=== PATIENT | male | born 1965 | race Two or more races ===

== ENCOUNTER 2025-02-06 18:24 | Observation (INO) | payer MEDICAID, SELFPAY ==
--- NOTE | 2025-02-05 09:25 | EKG_ITS ---
[facility] Test Date: 2025-02-05 Pat Name: ROBERT GARCIA Department: Room: - Gender: Male [employer] Assistant: LIZZETTE : 1965 Requested By: Nickolas Smith Order Number: [id number] Reading MD: Nickolas Smith Measurements Intervals [place] Rate: 56 P: 37 [place]: 150 QRS: 3 QRSD: 84 T: 69 QT: 379 QTc: 368 Interpretive Statements SINUS BRADYCARDIA NONSPECIFIC T-WAVE ABNORMALITY No previous ECG available for comparison /[id number]/S0/[id number]
[2025-02-05 10:28] VITALS: BMI 28.0
[2025-02-05 11:49] LABS: Basophils # (Auto) 0.1 Thou/mm3 (0.0-0.2); Basophils % (Auto) 1 % (0-2.5); Eosinophils # (Auto) 0.2 Thou/mm3 (0.0-0.5); Eosinophils % (Auto) 2 % (0-10); Hemoglobin 15.6 g/dL (13.5-16.0); Immature Granulocytes % (Auto) 1 % (0-0); Immature Granulocytes Auto 0.04 Thou/mm3 (0.00-0.00); Lymphocytes # (Auto) 2.9 Thou/mm3 (1.0-4.8); Lymphocytes % (Auto) 36 % (10-50); Mean Corpuscular HGB Conc 33.9 g/dl (31.0-37.0); Mean Corpuscular Hemoglobin 31.4 pg (25.0-35.0); Mean Corpuscular Volume 93 fL (80-100); Monocytes # (Auto) 0.8 Thou/mm3 (0.0-0.8); Monocytes % (Auto) 9 % (0-12); Neutrophils # (Auto) 4.1 Thou/mm3 (1.8-7.7); Neutrophils % (Auto) 51 % (37-80); Nucleated Red Blood Cell % 0 /100 WBC (0); Platelet Count 254 Thou/mm3 (140-440); RDW Standard Deviation 42.6 fL (35.1-43.9); Red Blood Count 4.97 Miln/mm3 (4.50-5.90)
[2025-02-05 12:01] LABS: Partial Thromboplastin Time 28.5 Seconds (22.0-36.0); Prothrombin Time 10.7 Seconds (9.0-12.2)
[2025-02-05 12:03] LABS: Alanine Aminotransferase 32 U/L (10-49); Albumin, Serum 4.7 gm/dL (3.5-5.0); Albumin/Globulin Ratio 1.7 (1.2-2.2); Alkaline Phosphatase 78 U/L (46-116); Anion Gap 7 (7-16); Aspartate Amino Transferase 26 U/L (0-34); BUN/Creatinine Ratio 17 Ratio (12-20); Bilirubin,Total 0.5 mg/dL (0.3-1.2); Blood Urea Nitrogen 15 mg/dL (9-23); Calcium 10.1 mg/dL (8.3-10.6); Calcium (Corrected) 10.1 mg/dL (8.5-10.1); Carbon Dioxide 27.6 mMol/L (20.0-31.0); Chloride 101 mMol/L (98-107); Creatinine (Component) 0.9 mg/dL (0.6-1.3); Estimated Creatinine Clearance 84.4 mL/min (>60); Globulin 2.7 gm/dL (2.3-3.5); Glucose 107 mg/dL (74-106); Osmolality,Calculated 272 (275-295); Potassium 3.9 mMol/L (3.4-5.1); Sodium 136 mMol/L (136-145); Total Protein 7.4 gm/dL (5.7-8.2); eGFR > 60 See Note
[2025-02-06] VITALS (11 sets, daily range): BP systolic 96–120; BP diastolic 59–78; PULSE 78–100; RESP 16–94; TEMP 36.3–37.2; O2SAT 95–98; BMI 28.0
--- NOTE | 2025-02-06 15:59 | SUR.OPER ---
IMPLANT: MIR THE PERSONALIZED KNEE SYSTEM CRUCIATE RETAINING RIGHT SIZE 9 PPS POROUS PLASMA SPRAY NARROW FEMUR LOT: [id number] TAO: [id number] REF: [id number] EXP. 11/12/33
--- NOTE | 2025-02-06 16:16 | SUR.OPER ---
IMPLANT: MIR THE PERSONALIZED KNEE SYSTEM VIVACIT-F HIGHLY CROSSLINKED POLYETHYLENE RIGHT 13 MM HEIGHT MEDIAL CONGRUENT ARTICULAR SURFACE REF: [phone] LOT: [id number] TAO: [id number] EXP. 10/30/28
--- NOTE | 2025-02-06 16:44 | XR_ITS ---
Examination: Knee, right , 3 views Technique: Knee AP, lateral, oblique 3 views Date and time of exam: Feb 06 2025 1750 hours INDICATIONS: Postop knee replacement FINDINGS: Total right knee arthroplasty. Satisfactory alignment. No fracture. IMPRESSION: Total right knee arthroplasty with satisfactory alignment
--- NOTE | 2025-02-06 16:45 | PD.SUROPNT ---
Date of Procedure 02/06/25 Pre Op Diagnosis Severe DJD right knee joint Post Op Diagnosis Same Procedure Right total knee replacement [place] persona implant. Femur size 9 narrow Tibial baseplate size EE Polyethylene size 13 mm medial stabilizer Patella size 29 mm Findings Refer dictation Procedure Description The patient was given a [spinal] anesthesia. Once satisfactory anesthesia was achieved a tourniquet was placed on right upper thigh. Intravenous antibiotics was given at the time of anesthesia. The patient was thoroughly prepped and draped. After using Esmarch the tourniquet pressure was raised to 350 mmHg. A skin incision was made 2 inches proximal to the upper pole of patella going as far down as up to the medial aspect of the tibial tuberosity. The skin was raised as a flap on the site. The bleeding vessels were electrocoagulated as and when encountered. The quadriceps tendon, medial border of the patella and the patellar tendon along the medial aspect of the tibial tuberosity was incised and reflected. The patellar tendon was reflected as much as needed to dalila the patella. The soft tissue from the upper medial border of the tibia was reflected to correct her genu varum deformity. The knee joint was flexed. The anterior cruciate ligament, medial and lateral meniscus were excised. Next para drill hole was made to the inferior surface of the femur. Following that a swab was placed. A 4?? of abduction was already put into it. Following that a cutting block for the inferior cut of the femur was placed and nicely secured with the pins. The swat was removed. The inferior cut of the femur was made and after that the cutting block was removed. Following that a sizer was placed. A decision was made to use size [9] femur implant. 2 drill holes each in 3?? of external rotation were made. The sizer was removed. Size [9] cutting block was placed. Following that anterior, posterior, anterior chamfer and posterior chamfer cuts were made. The cutting block was removed. The knee joint was extended and a 10 mm trial plastic was removed and the intended level of the tibial cut was marked. The knee joint was flexed. With the help of double-pronged the tibia was displaced anteriorly. An extramedullary jig for the cutting block placement of the tibia was placed. The mechanical axis of the zig was parallel to the mechanical axis of the tibia. Following that the tibial cutting block was placed at the desired level and was secured nicely with the help of pins. Following that the tibial cut was made. In this case was posterior cruciate ligament was saved. The cutting block was removed. The spacer was placed and a decision was made to use size [13] polyethylene. The sizing of the tibial baseplate was done and the decision was made to use size [E] tibial baseplate. Following that size [9] trial femur implant was placed in lateralized position and size [E] tibial tibial baseplate along with size [13] plastic was placed in knee joint was flexed and extended quite a few times and tibial baseplate was allowed to sit wherever it wanted to. The markings were made for the tibial baseplate. 2 drill holes were made for the inferior surface of the femur trial implant. The trial implant was removed and tibial baseplate was placed again with the help of pins. The collar was placed and superior hole was drilled. Following that a fin cut was made. The patella was reamed with [29] mm diameter reamer. [12] mm thickness was left. A collar was placed and 3 drill holes were made. All the trial implant was placed and patellar tracking was checked and found to be good. Lateral release was done at this point. The wound was irrigated with antibiotic solution every 4-5 minutes. Now the power lavage antibiotic solution was used. The knee joint was flexed. The bone were made dry. The cement was mixed. With the help of cement the tibial baseplate was mounted. The excess cement was removed. The femur implant was placed and trial plastic was placed and knee joint was extended. Patella was also mounted with the help of cementing. Excess cement was removed. Osteophytes from the patella was removed at this time. Once the cement was set the tourniquet pressure was released. The bleeding vessels were electrocoagulated. The trial plastic was removed and 13 mm medial stabilizer, ultra high molecular weight polyethylene was placed. Closure The quadriceps muscle was closed with 1-0 Vicryl strata fix in continuous fashion. The subcu tissue was closed with 2-0 STRATAFIX in continuous fashion. The subcu tissue was closed with 2-0 strata fix absorbable suture. The skin was closed with Prineo tape. The wound was cleaned with hydrogen proximal solution and a sterile dressing was applied. Patient tolerated procedure very well. Estimated blood loss [50] mL. Prognosis in this case is good. This was taken to the recovery room in good condition. Anesthesia spinal and other Pathology / specimen None Estimated Blood Loss 50 Surgeon Nickolas Roberts MD Surgical Staff Operation Date: 02/06/25 14:00 Case Staff Anesthesiologist: Shaka Argueta RNlibrary paraprofessional: Kaity Hernandez
--- NOTE | 2025-02-06 17:03 | SUR.PHASEI ---
Arrived to recovery bay 3 via bed. Report received from Isaac BLACK and Dr. Argueta. Resting with eyes open. Responding to questions and commands appropriately. Dressing to right knee C/D/I. Palpated pedal pulse to RLE.
--- NOTE | 2025-02-06 17:04 | ESHP_ITS ---
RE: ROBERT GARCIA : 1965 DATE OF ADMISSION: 02/06/2025 HISTORY OF PRESENT ILLNESS: The patient came to my [place] office on 02/05/2025 for detailed preop history and physical examination. HISTORY PRESENT COMPLAINT: Earlier, the patient presented to me with history of pain, swelling, and locking of the right knee joint. The patient graded intensity of pain to be 8-9/10. The patient is unable to sleep. Quality of life and activities of daily living is affected. The patient is able to walk only 150 to 200 feet before he has to stop or slow down. It affects his sleep. Unable to do daily and routine household work due to pain. The patient underwent right knee arthroscopy in 09/2024, but it did not help him at all. Indeed, it showed grade 4 chondromalacia with almost absent articular surface in the medial joint space. PAST MEDICAL HISTORY: The patient has a history of diabetes mellitus, high blood pressure. No history of asthma, seizures, chest pain, myocardial infarction, or bleeding disorder. PAST SURGICAL HISTORY: Includes status post right knee arthroscopy. DRUG HISTORY: The patient is on 1. Losartan. 2. Metformin. 3. Gabapentin. 4. Hydrochlorothiazide. 5. Atorvastatin. ALLERGIES: Nil known. FAMILY HISTORY AND SOCIAL HISTORY: The patient stopped smoking sometime back. Denies drinking and is not working. PHYSICAL EXAMINATION: General: Normal-built person. Vital Signs: Pulse is 74 per minute. Blood pressure is 122/76. Neck: Soft, supple. No mass felt. Trachea is centrally placed. Cardiovascular System: First and second heart sounds normal. No murmur heard. Respiratory System: Bilateral vesicular breath sounds. Chest: Clear. Abdomen: Soft. No mass felt. Bowel sounds present. Extremities: Right knee examination revealed mild swelling. Active range of motion is 0 to 115 degrees of flexion. Patellofemoral crepitus is present. Genu varus deformity is present. The patient walks with a limp. DIAGNOSTIC DATA: X-ray confirms severe osteoarthritic changes with decreased joint space in the medial as well as in the patellofemoral compartment. ASSESSMENT AND PLAN: The patient was explained the nature of the problem. Right total knee replacement was discussed and advised. Risk with anesthesia was explained and that includes, but not limited to reaction to anesthetic agents, cardiac arrest, so rarely it might be fatal. Risks with operation include infection and if that happens, the patient may need further surgical procedure. Sometime rare complications including possible damage to nerve and/or vessels may happen and if that happens, that has to be taken care of. No guarantee is given regarding functional outcome and/or pain relief. Possibility of blood transfusion was discussed. Risk with blood transfusion was discussed in detail, but the patient stated that he would accept blood when it is absolutely necessary. Appropriate lab work is done. Surgery is booked for 02/06/2025 in [facility]. DT: 14:39:45 TT: 17:03:00 Ref: [id number] - TID: [id number]
--- NOTE | 2025-02-06 17:19 | PD.ANESPROG ---
Documentation for date of: 02/06/25 ANESTHESIA NOTE: Patient had spinal anesthesia with intrathecal Duramorph and R femoral block and MAC for R TKA this afternoon. He did well intra-op and is currently in PACU doing well, VSS, post op pain controlled. Rehman was placed. I've entered spinal orders for 24 hrs. Shaka Argueta MD Anesthesia Progress Note Progress Note Most recent Vital Signs: Last Vital Signs Temp 98.0 F 02/06/25 12:36 Pulse 78 02/06/25 12:36 Resp 18 02/06/25 12:36 BP 116/74 02/06/25 12:36 Pulse Ox 96 02/06/25 12:36
--- NOTE | 2025-02-06 18:14 | SUR.PHASEI ---
Report given to Eusebio BLACK Med/Surg
--- NOTE | 2025-02-06 18:17 | SUR.PHASEI ---
Transferred to room 365 via bed. Call light in hand, bed in lowest position, bed rails up x3, bed brake applied. Aware not to attempt getting out of bed on his own and to call for assistance. Aware how to use call light. Dressing to right knee remains C/D/I. No c/o pain or discomfort, bishop catheter intact, draining clear yellow urine. +CMS to RLE.
[2025-02-06] MEDS: ceFAZolin/D5W 1 GM IVPB 1 GM/50 ML BAG IV (21:30)
[2025-02-06] MEDS: RINGERS LACTATED 1000 ML 1,000 ML 20 ML IV (21:31)
--- NOTE | 2025-02-06 22:40 | PC.NURSE ---
Dr. Roberts was notified of patient's bedside blood sugar level of 477. MD said to put an internal medicine consult. Dr. Chapman was made aware, MD agreed. Dr. Chapman to check patient's chart and will put an order in.
--- NOTE | 2025-02-06 22:45 | PD.RESCONSUL ---
HPI Data of Consult Requesting Physician: Nickolas Roberts MD Admitting Provider: Nickolas Roberts MD Attending Provider: Nickolas Roberts MD Primary Care Provider: Patrick Peres Consult Narrative Reason for consult: Hyperglycemia History of present illness: Bobo Jennings is 59 yr male with PMH of Diabetes mellitus, hypertension, hyperlipidemia who is a patient of orthopedics Dr. Roberts. He was admitted on 02/06/2025 for right total knee replacement. He had presented to Dr. Roberts's clinic with history of pain, swelling, right knee joint locking. Pain was 8/10 and hindering sleep. Pain was affecting the activities and inhibiting walking distances more than 200 feet. Patient is unable to continue any work or household routine. Patient had a right knee arthroscopy in 09/26 which did not improve his symptoms. It had shown grade IV chondromalacia with almost absent articular surface in the medial joint space. Patient underwent right total knee replacement due to severe DJD on 02/06. Patient tolerated procedure well. Primary care team was consulted due to elevated blood sugar 477. Will start patient on sliding scale insulin. A1c pending. cc:: cc: Nickolas Roberts MD Review of Systems Review of Systems Systems Reviewed: All systems reviewed, normal except as documented Past Medical History Past Medical History NEUROLOGIC: Negative Neurological Disorders or Seizures CARDIAC: Positive Cardiac Disorders, Hypercholesterolemia and Hypertension; Negative Congestive Heart Failure RESPIRATORY: Negative Respiratory Disorders or Chronic Obstructive Pulmonary Disease (COPD) GASTROINTESTINAL: Positive Gastrointestinal Disorders, Hemorrhoids and Gastroesophageal Reflux Disease; Negative Hepatitis GENITOURINARY: Negative Genitourinary Disorders or Renal Disease MUSCULOSKELETAL: Positive Musculoskeletal Disorders and Arthritis ENT: Positive History of ENT Problems (reading glasses) and Deafness ([facility] has hearing aids) ENDOCRINE: Positive Endocrine Disorders and Diabetes Mellitus Type 2; Negative Diabetes Mellitus Type 1 HEMATOLOGIC: Negative Blood Disorders or Anemia OTHER HISTORY: Negative Hospitalization, Autoimmune Disease, Shingles, Falls, Blood Transfusions, Blood Transfusion Reaction, Anesthesia Reactions or Cancer Family History FAMILY HISTORY: Positive Family Cardiac Disorders, Family Endocrine Disorders, Family Musculoskeletal Disorders and Family Surgery; Negative Family Psychiatric Problems, Family Respiratory Disorders, Family Gastrointestinal Problems, Family Genitourinary Problems, Family Reproductive Disorders, Family Cancer or Family Anesthesia Reaction Surgical History SURGICAL: Positive Arthroscopy (Right) Social History SMOKING STATUS: Former smoker Travel History EBOLA RISK: No Exam Vital Signs Temp Pulse Resp BP Pulse Ox O2 Del Method 97.4 F 100 18 120/78 96 Room Air 02/06/25 20:00 02/06/25 20:00 02/06/25 20:00 02/06/25 20:00 02/06/25 20:00 02/06/25 20:00 Narrative Exam General: Alert and oriented x3. No acute distress, cooperative HEENT: NCAT, No JVD noted. Mucosa moist. Pupils are equal and reactive to light bilaterally Cardiovascular: Normal S1 and S2. Regular rate and rhythm. Respiratory: Lungs are clear to auscultation bilaterally. No wheezing or crackles heard. Abdomen: Soft, nontender, not distended, normal bowel sounds. Skin: Warm to touch, dry, no rashes noted Musculoskeletal: No gross injuries. Right knee in shailesh wrap, no signs of bleeding. No pitting edema Neuro: Alert and oriented x3. No focal neuro deficits. Psych: Normal affect and mood Results Labs 02/05/25 10:50 02/05/25 10:50 Quality Measures Quality Measures VTE prophylaxis Medications Home Medications and Allergies Home Medications ?Medication ?Instructions ?Recorded ?Confirmed ?Type atorvastatin 20 mg tablet 20 mg PO HS 02/05/25 02/05/25 History hydrochlorothiazide 25 mg tablet 25 mg PO DAILY 02/05/25 02/05/25 History losartan 50 mg tablet 50 mg PO DAILY 02/05/25 02/05/25 History metformin 500 mg tablet 500 mg PO BID 02/05/25 02/05/25 History Allergies Allergy/AdvReac Type Severity Reaction Status Date / Time No Known Allergies Allergy Verified 02/05/25 10:25 Visit Medications Acetaminophen (Acetaminophen 325 Mg Tablet) 650 mg PO Q4HR PRN PRN Reason: PAIN SCALE 1-3 (mild Stop: 02/07/25 16:20 Hydrocodone Bitart/Acetaminophen (Hydrocodone/Apap 5/325 Tablet) 1 tab PO Q4HR PRN PRN Reason: PAIN Stop: 02/07/25 16:20 Diphenhydramine HCl (Diphenhydramine Inj 50 Mg/Ml Vial) 12.5 mg IVP Q4HR PRN PRN Reason: ITCHING Stop: 02/07/25 16:20 Hydralazine HCl (Hydralazine Inj 20 Mg/Ml Vial) 5 mg IV Q20MIN PRN PRN Reason: SEE COMMENTS Hydromorphone HCl (Hydromorphone Inj 2 Mg/Ml Vial) 1 mg IVP Q4HR PRN PRN Reason: PAIN SCALE 4-10(Mod-Sev Stop: 02/07/25 16:20 Lactated Ringer's (Lactated Ringers) 1,000 mls @ 20 mls/hr IV .Q24H ONE Stop: 02/07/25 05:59 Last Admin: 02/06/25 21:31 Dose: 20 mls/hr Lactated Ringer's (Lactated Ringers) 1,000 mls @ 500 mls/hr IV .Q2H PRN PRN Reason: HYPOTENSION Cefazolin Sodium/Dextrose (Ancef Ivpb) 1 gm in 50 mls @ 50 mls/hr IV Q8H THERESE Stop: 02/07/25 05:59 Last Admin: 02/06/25 21:30 Dose: 50 mls/hr Ketorolac Tromethamine (Ketorolac Inj 30 Mg/Ml Vial) 30 mg IVP Q6HR PRN PRN Reason: PAIN SCALE 4-10(Mod-Sev Ondansetron HCl (Ondansetron Inj 2 Mg/Ml Inj 2 Ml) 4 mg IV X1 PRN PRN Reason: NAUSEA OR VOMITING Ondansetron HCl (Ondansetron Inj 2 Mg/Ml Inj 2 Ml) 4 mg IV Q6HR PRN PRN Reason: NAUSEA OR VOMITING Stop: 03/08/25 18:12 Discontinued Medications Sodium Chloride 3,000 ml/ (Gentamicin Sulfate 120 mg) 0 ml IRRIG X1 ONE Stop: 02/06/25 13:46 Last Admin: 02/06/25 18:26 Dose: Not Given Cefazolin Sodium (Ancef 2gm Ivpb) 2 gm in 100 mls @ 100 mls/hr IV X1 ONE Stop: 02/06/25 06:59 Last Admin: 02/06/25 18:25 Dose: Not Given Cefazolin Sodium/Dextrose (Ancef Ivpb) 1 gm in 50 mls @ 50 mls/hr IV Q8H [facility] Stop: 02/07/25 03:12 Assessment & Plan Plan Bobo Jennings is 59 yr male with PMH of Diabetes mellitus, hypertension, hyperlipidemia who is a patient of orthopedics Dr. Roberts. He was admitted on 02/06/2025 for right total knee replacement. Primary care team was consulted due to elevated blood sugar 477. # Tph-jxxippq-lzunzjgys type 2 diabetes On admission initial glucose 107. No A1c on file. Patient takes metformin 500 mg twice daily for diabetes at home. Primary team was consulted postsurgery due to elevated sugars 477. - Held home medications - Bedside blood glucose checks ACHS - Insulin lispro sliding scale - Carb consistent low diet - A1c pending #Hx HTN #Hx HLD - Atorvastatin 20 mg at bedtime - Hydrochlorothiazide 25 mg daily - Losartan 50 mg daily - Antihypertensives not yet resumed due to well controlled BP - Monitor #s/p total right knee replacement - To be managed by orthopedics team Thank you for allowing IM to consult. Abeba Chapman, PGY1 Attending Provider Attestation/Addendum Pt was evaluated and plan formulated together with the housestaff team. I have reviewed the residents note above and agree with most of its content. Please refer to the residents note for additional details. A1C is 6.9. Will cover the patient with an insulin sliding scale.
--- NOTE | 2025-02-06 22:59 | PC.NURSE ---
Dr. Sanderson and Dr. Chapman here to see/assess patient.
[2025-02-06 23:21] LABS: Glucose Estimated Average 151 mg/dL (80-131); Hemoglobin A1C 6.9 % Hgb (4.8-6.0)
[2025-02-06] MEDS: INSULIN GLARGINE (Lantus) 5 UNIT/0.05 ML (PER 5 UNITS) 10 UNIT SC (23:24)
[2025-02-06] MEDS: INSULIN LISPRO (AdmeLOG) 1 UNIT/0.01 ML UNIT SC (23:57)
[2025-02-07] VITALS (7 sets, daily range): BP systolic 99–127; BP diastolic 67–80; PULSE 68–91; RESP 17–96; TEMP 36.1–36.4; O2SAT 94–97; BMI 27.8
[2025-02-07] MEDS: ceFAZolin/D5W 1 GM IVPB 1 GM/50 ML BAG IV (05:18)
[2025-02-07 05:51] LABS: Basophils % (Auto) 0 % (0-2.5); Eosinophils % (Auto) 0 % (0-10); Hematocrit 38.2 % (41.0-53.0); Hemoglobin 12.8 g/dL (13.5-16.0); Immature Granulocytes % (Auto) 0 % (0-0); Immature Granulocytes Auto 0.04 Thou/mm3 (0.00-0.00); Lymphocytes # (Auto) 0.9 Thou/mm3 (1.0-4.8); Lymphocytes % (Auto) 8 % (10-50); Mean Corpuscular HGB Conc 33.5 g/dl (31.0-37.0); Mean Corpuscular Hemoglobin 30.9 pg (25.0-35.0); Mean Corpuscular Volume 92 fL (80-100); Monocytes # (Auto) 0.6 Thou/mm3 (0.0-0.8); Monocytes % (Auto) 6 % (0-12); Neutrophils # (Auto) 9.2 Thou/mm3 (1.8-7.7); Neutrophils % (Auto) 86 % (37-80); Nucleated Red Blood Cell % 0 /100 WBC (0); Platelet Count 209 Thou/mm3 (140-440); Red Blood Count 4.14 Miln/mm3 (4.50-5.90); White Blood Count 10.7 Thou/mm3 (3.8-10.6)
[2025-02-07] MEDS: INSULIN LISPRO (AdmeLOG) 1 UNIT/0.01 ML UNIT SC ×2 (07:45→12:17)
[2025-02-07] MEDS: HYDROcodone/APAP 5/325 TABLET 1 TAB PO (09:17)
[2025-02-07] MEDS: LOSARTAN POTASSIUM 25 MG TABLET PO (09:17)
[2025-02-07] MEDS: INSULIN GLARGINE (Lantus) 5 UNIT/0.05 ML (PER 5 UNITS) SC (09:18)
[2025-02-07] MEDS: HYDROmorphone INJ 2 MG/ML VIAL 1 MG IVP (11:40)
--- NOTE | 2025-02-07 13:42 | PC.PT ---
Patient is safe to ambulate to the bathroom and in the halls with a FWW and 1 staff assist. RN made aware.
--- NOTE | 2025-02-07 13:55 | ESPR_ITS ---
Documentation for date of: 02/07/25 Subjective Subjective Interval history: Patient seen today at the bedside found awake, alert, oriented x 3. No overnight events reported. Vital signs and labs reviewed. Blood sugars this a.m. more in the low 400s, insulin regimen adjusted and optimized in the afternoon blood sugars now in the 150s. Patient already evaluated by PT and is status post-op. Recommended to hold antihypertensive medications until seen by PCP as blood pressure readings here have been on the lower side. Internal medicine team will be signing off from the case. Exam Vital Signs Temp Pulse Resp BP Pulse Ox O2 Del Method 97.3 F 68 18 112/74 96 Room Air 02/07/25 12:00 02/07/25 12:00 02/07/25 12:00 02/07/25 12:00 02/07/25 12:02/07/25 12:00 Narrative Exam General: Alert and oriented x3. No acute distress, cooperative HEENT: NCAT, No JVD noted. Mucosa moist. Pupils are equal and reactive to light bilaterally Cardiovascular: Normal S1 and S2. Regular rate and rhythm. Respiratory: Lungs are clear to auscultation bilaterally. No wheezing or crackles heard. Abdomen: Soft, nontender, not distended, normal bowel sounds. Skin: Warm to touch, dry, no rashes noted Musculoskeletal: No gross injuries. Right knee in shailesh wrap, no signs of bleeding. No pitting edema Neuro: Alert and oriented x3. No focal neuro deficits. Psych: Normal affect and mood Objective Labs 02/07/25 04:34 02/05/25 10:50 Labs: Laboratory Results - last 24 hr 02/05/25 02/06/25 02/07/25 10:50 23:00 04:34 WBC 10.7 H RBC 4.14 L Hgb 12.8 L D Hct 38.2 L MCV 92 MCH 30.9 MCHC 33.5 RDW Std Deviation 42.0 Plt Count 209 D Neut % (Auto) 86 H Lymph % (Auto) 8 L [place] % (Auto) 6 Eos % (Auto) 0 Baso % (Auto) 0 Neut # (Auto) 9.2 H Lymph # (Auto) 0.9 L [place] # (Auto) 0.6 Eos # (Auto) 0.0 Baso # (Auto) 0.0 Immature Gran # (Auto) 0.04 H Absolute Nucleated RBC 0.00 Immature Gran % 0 Nucleated RBC % [address] Glu mg/dL 151 H Hemoglobin A1c 6.9 H Blood Type O Positive Antibody Screen NEGATIVE Crossmatch See Detail Blood Bank Wristband ID Yes Quality Measures Quality Measures VTE prophylaxis Assessment & Plan Assessment Current Active Medications: Generic Name Dose Route Start Last Admin Trade Name Freq PRN Reason Stop Dose Admin Acetaminophen 650 mg 02/06/25 16:21 Acetaminophen 325 Mg Tablet PO 02/07/25 16:20 Q4HR PRN PAIN SCALE 1-3 (mild Hydrocodone Bitart/Acetaminophen 1 tab 02/07/25 08:29 02/07/25 09:17 Hydrocodone/Apap 5/325 Tablet PO 02/07/25 16:20 1 tab Q4HR PRN Administration Pain 4-6 Atorvastatin Calcium 40 mg 02/07/25 21:00 Atorvastatin Calcium 20 Mg Tablet PO 03/09/25 20:59 HS THERESE Dextrose 25 ml 02/06/25 23:49 Dextrose 50%-Water Inj 50 Ml Syringe IV 03/08/25 23:48 Q15MIN PRN BG 50-70 responsive npo pt Dextrose 50 ml 02/06/25 23:49 Dextrose 50%-Water Inj 50 Ml Syringe IV 03/08/25 23:48 Q15MIN PRN BG <50 OR BG <70 & pt unresponsive Diphenhydramine HCl 12.5 mg 02/06/25 16:21 Diphenhydramine Inj 50 Mg/Ml Vial IVP 02/07/25 16:20 Q4HR PRN ITCHING Glucagon 1 mg 02/06/25 23:49 Glucagon Inj 1 Mg Vial IM Q15MIN PRN BG <70, and no IV access Hydromorphone HCl 1 mg 02/07/25 08:29 02/07/25 11:40 Hydromorphone Inj 2 Mg/Ml Vial IVP 02/07/25 16:20 1 mg Q4HR PRN Administration Pain Scale 7-10(Mod-Sev Insulin Glargine 15 unit 02/08/25 09:00 Insulin Glargine (Lantus) 5 Unit/0.05 Ml (Per 5 Units) SC 03/10/25 08:59 QDAY THERESE Insulin Human Lispro 0 unit 02/07/25 08:33 02/07/25 12:17 Insulin Lispro (Admelog) 1 Unit/0.01 Ml Unit SC 03/08/25 23:49 2 unit ACHS THERESE Administration Protocol Losartan Potassium 25 mg 02/07/25 09:00 02/07/25 09:17 Losartan Potassium 25 Mg Tablet PO 03/09/25 08:59 25 mg QDAY THERESE Administration Ondansetron HCl 4 mg 02/06/25 18:13 Ondansetron Inj 2 Mg/Ml Inj 2 Ml IV 03/08/25 18:12 Q6HR PRN NAUSEA OR VOMITING Plan 59 yr male with PMH of Diabetes mellitus, hypertension, hyperlipidemia who is a patient of orthopedics Dr. Roberts. He was admitted on 02/06/2025 for right total knee replacement. Primary care team was consulted due to elevated blood sugar 477. # Ztf-xqsvnec-vofvedcud type 2 diabetes On admission initial glucose 107. No A1c on file. Patient takes metformin 500 mg twice daily for diabetes at home. Primary team was consulted postsurgery due to elevated sugars 477 A1C 6.9. BS 400~>150s - Held home medications - Bedside blood glucose checks ACHS - Insulin lispro sliding scale - Carb consistent low diet - glargine 15u qday #Hx HTN #Hx HLD - Atorvastatin 20 mg at bedtime - Hydrochlorothiazide 25 mg daily - Losartan 50 mg daily - Antihypertensives held during hospitalization as BP soft, can resume as outpatient when seen by PCP - Monitor #s/p total right knee replacement - To be managed by orthopedics team Thank you for allowing IM team to consult Case discussed with my senior Dr. Guerra and my attending Dr. Jules Cruz MD PGY-1
--- NOTE | 2025-02-07 15:25 | PC.NURSE ---
Discharge instructions given, pt verbalized understanding. VS taken, see flowsheet.
--- NOTE | 2025-02-07 15:32 | PC.SS ---
SS met with patient who is alert/oriented. He was Kyrgyz speaking only. Career Services Representative line used during assessment. Patient was able to verify demographics. Patient confirmed he lives with ict teacher. Patient was admitted for right knee fracture. Surgery was yesterday. Patient worked with PT and they recommended home health. Patient confirmed he has a walker at home. Patient will return home today. He follows at [facility] in [place]. Alt medical decision maker: Evita Mariscal, ict teacher,
--- NOTE | 2025-02-09 16:37 | PD.ANESPROG ---
Documentation for date of: 02/09/25 POST ANESTHESIA NOTE: Patient had spinal anesthesia and R femoral block and MAC for R TKA on 02/06/25. I just called and spoke with him via spanish interpreter/translator and he denied any problems from anesthesia and was thankful. Shaka Argueta MD Anesthesia Progress Note Progress Note Most recent Vital Signs: Last Vital Signs Temp 97.4 F 02/07/25 15:30 Pulse 74 02/07/25 15:30 Resp 18 02/07/25 15:30 BP 127/80 02/07/25 15:30 Pulse Ox 97 02/07/25 15:30 O2 Del Method Room Air 02/07/25 15:30
== END 2025-02-07 15:37 | disposition home or self-care (01) ==
LOC: S3NX 18:30
PROVIDERS: Anesthesiology; Admitting Provider Orthopaedic Surgery; PCP Physician Assistant; Referring Provider Orthopaedic Surgery; Visit Provider Internal Medicine
PROC: (CPT 27447; principal; 2025-02-06 13:45)
DX: M17.11 Unilateral primary osteoarthritis, right knee (principal); M23.91 Unspecified internal derangement of right knee; I10 Essential (primary) hypertension; E78.00 Pure hypercholesterolemia, unspecified; E11.65 Type 2 diabetes mellitus with hyperglycemia; Z01.810 Encounter for preprocedural cardiovascular examination; M25.761 Osteophyte, right knee
CPT/HCPCS: 27447; C1776; 36415; 73562; 80053; 83036; 85025; 85610; 85730; 86850; 86900; 86901; 86923; 87081; 93005; 96365; 97162; A4217; G0378; J0689; J0690; J1100; J1171; J1815; J2250; J2274; J2704; J2795; J3010; J3490; J7120; A9270; J2270

== ENCOUNTER 2025-06-05 18:28 | Observation (INO) | payer MEDICAID, SELFPAY ==
[2025-06-01 11:41] VITALS: BMI 29.2
[2025-06-01 12:21] LABS: Basophils # (Auto) 0.0 Thou/mm3 (0.0-0.2); Basophils % (Auto) 1 % (0-2.5); Eosinophils # (Auto) 0.1 Thou/mm3 (0.0-0.5); Eosinophils % (Auto) 2 % (0-10); Hematocrit 45.9 % (41.0-53.0); Hemoglobin 15.3 g/dL (13.5-16.0); Immature Granulocytes Auto 0.02 Thou/mm3 (0.00-0.00); Lymphocytes # (Auto) 2.3 Thou/mm3 (1.0-4.8); Lymphocytes % (Auto) 37 % (10-50); Mean Corpuscular HGB Conc 33.3 g/dl (31.0-37.0); Mean Corpuscular Hemoglobin 30.2 pg (25.0-35.0); Mean Corpuscular Volume 91 fL (80-100); Monocytes # (Auto) 0.6 Thou/mm3 (0.0-0.8); Monocytes % (Auto) 10 % (0-12); Neutrophils # (Auto) 3.2 Thou/mm3 (1.8-7.7); Neutrophils % (Auto) 50 % (37-80); Nucleated Red Blood Cell # 0.00 Thou/mm3 (0.00-0.00); Nucleated Red Blood Cell % 0 /100 WBC (0); Platelet Count 203 Thou/mm3 (140-440); RDW Standard Deviation 43.1 fL (35.1-43.9); Red Blood Count 5.07 Miln/mm3 (4.50-5.90); White Blood Count 6.4 Thou/mm3 (3.8-10.6)
[2025-06-01 12:37] LABS: INR 1.0 (0.9-1.3); Partial Thromboplastin Time 27.3 Seconds (22.0-36.0); Prothrombin Time 10.6 Seconds (9.0-12.2)
[2025-06-01 12:42] LABS: Alanine Aminotransferase 23 U/L (10-49); Albumin, Serum 4.8 gm/dL (3.5-5.0); Albumin/Globulin Ratio 1.9 (1.2-2.2); Alkaline Phosphatase 90 U/L (46-116); Anion Gap 11 (7-16); Aspartate Amino Transferase 25 U/L (0-34); BUN/Creatinine Ratio 12 Ratio (12-20); Bilirubin,Total 0.4 mg/dL (0.3-1.2); Blood Urea Nitrogen 12 mg/dL (9-23); Calcium 10.4 mg/dL (8.3-10.6); Calcium (Corrected) 10.4 mg/dL (8.5-10.1); Carbon Dioxide 27.8 mMol/L (20.0-31.0); Chloride 104 mMol/L (98-107); Creatinine (Component) 1.0 mg/dL (0.6-1.3); Estimated Creatinine Clearance 74.8 mL/min (>60); Globulin 2.5 gm/dL (2.3-3.5); Glucose 88 mg/dL (74-106); Osmolality,Calculated 283 (275-295); Potassium 4.4 mMol/L (3.4-5.1); Sodium 143 mMol/L (136-145); Total Protein 7.3 gm/dL (5.7-8.2); eGFR > 60 See Note
[2025-06-04 22:50] VITALS: BMI 28.8
[2025-06-05] VITALS (13 sets, daily range): BP systolic 101–135; BP diastolic 67–89; PULSE 77–110; RESP 14–20; TEMP 36.1–36.7; O2SAT 95–97; BMI 28.8
--- NOTE | 2025-06-05 14:42 | SUR.OPER ---
Persona Knee System Cruciate Retaining (CR) left size 9 PPS Porous plasma spray narrow Lot: [id number] TAO: [id number] Ref: [id number] Exp. 08/21/34 x 1
--- NOTE | 2025-06-05 15:17 | XR_ITS ---
Examination: Knee, left , 3 views Technique: Knee AP, lateral, oblique 3 views Date and time of exam: June 05, 2025 1620 hours INDICATIONS: Postop knee replacement FINDINGS: Total left knee arthroplasty. Satisfactory alignment No fracture IMPRESSION: Total left knee replacement with satisfactory alignment
--- NOTE | 2025-06-05 15:18 | ESOP_ITS ---
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 Beside that the femoral condyle and tibial plateau were denuded of cartilage. 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 Significant osteophytes were present Procedure Description The patient was given a [spinal] anesthesia. The left knee block was given as well once satisfactory anesthesia was achieved a tourniquet was placed on left upper thigh. Intravenous antibiotics was given at the time of anesthesia. The patient was thoroughly prepped and draped. After using Esmarch the tourniquet pressure was raised to 350 mmHg. A skin incision was made 2 inches proximal to the upper pole of patella going as far down as up to the medial aspect of the tibial tuberosity. The skin was raised as a flap on the site. The bleeding vessels were electrocoagulated as and when encountered. The quadriceps tendon, medial border of the patella and the patellar tendon along the medial aspect of the tibial tuberosity was incised and reflected. The patellar tendon was reflected as much as needed to dalila the patella. The soft tissue from the upper medial border of the tibia was reflected to correct her genu varum deformity. The knee joint was flexed. The anterior cruciate ligament, medial and lateral meniscus were excised. Next para drill hole was made to the inferior surface of the femur. Following that a swab was placed. A 4?? of abduction was already put into it. Following that a cutting block for the inferior cut of the femur was placed and nicely secured with the pins. The swat was removed. The inferior cut of the femur was made and after that the cutting block was removed. Following that a sizer was placed. A decision was made to use size [9] femur implant. 2 drill holes each in 3?? of external rotation were made. The sizer was removed. Size [9] cutting block was placed. Following that anterior, posterior, anterior chamfer and posterior chamfer cuts were made. The cutting block was removed. The knee joint was extended and a 10 mm trial plastic was removed and the intended level of the tibial cut was marked. The knee joint was flexed. With the help of double-pronged the tibia was displaced anteriorly. An extramedullary jig for the cutting block placement of the tibia was placed. The mechanical axis of the zig was parallel to the mechanical axis of the tibia. Following that the tibial cutting block was placed at the desired level and was secured nicely with the help of pins. Following that the tibial cut was made. In this case was posterior cruciate ligament was saved. The cutting block was removed. The spacer was placed and a decision was made to use size [12] polyethylene. The sizing of the tibial baseplate was done and the decision was made to use size [E] tibial baseplate. Following that size [9] trial femur implant was placed in lateralized position and size [E] tibial tibial baseplate along with size [12] medial stabilizer plastic was placed in knee joint was flexed and extended quite a few times and tibial baseplate was allowed to sit wherever it wanted to. The markings were made for the tibial baseplate. 2 drill holes were made for the inferior surface of the femur trial implant. The trial implant was removed and tibial baseplate was placed again with the help of pins. The collar was placed and superior hole was drilled. Following that a fin cut was made. The patella was reamed with [29] mm diameter reamer. [12] mm thickness was left. A collar was placed and 3 drill holes were made. All the trial implant was placed and patellar tracking was checked and found to be good. Lateral release was done at this point. The wound was irrigated with antibiotic solution every 4-5 minutes. Now the power lavage antibiotic solution was used. The knee joint was flexed. The bone were made dry. The cement was mixed. With the help of cement the tibial baseplate was mounted. The excess cement was removed. The femur implant was placed and trial plastic was placed and knee joint was extended. Patella was also mounted with the help of cementing. Excess cement was removed. Osteophytes from the patella was removed at this time. Once the cement was set the tourniquet pressure was released. The bleeding vess els were electrocoagulated. The trial plastic was removed and 12 mm medial stabilizer ultra high molecular weight polyethylene was placed. Closure The quadriceps muscle, medial border patella and patellar tendon was closed with 1 strata fix in continuous fashion. The fat layer was closed with 2 strata fix in continuous fashion. The skin was closed with Monocrome subcutaneous layer in continuous fashion. Prineo tape was applied after cleaning the wound. The wound was cleaned with hydrogen proximal solution and a sterile dressing was applied. Patient tolerated procedure very well. Estimated blood loss [50] mL. Prognosis in this case is good. This was taken to the recovery room in good condition. Anesthesia spinal and other Pathology / specimen None Estimated Blood Loss 50 Surgeon Nickolas Roberts MD Surgical Staff Operation Date: 06/05/25 11:45 Case Staff Anesthesiologist: Shaka Argueta RNhuman factors advisor lead: Ca oRss
--- NOTE | 2025-06-05 15:50 | SUR.PHASEI ---
pt received from OR in recovery bay 1. pt awake and alert, breathing unlabored on room air. v/s stable. pt dressing to left lower extremity cdi. report received from Dr. Argueta and Yen Jimenez.
--- NOTE | 2025-06-05 16:13 | ESHP_ITS ---
RE: ROBERT GARCIA : 1965 DATE OF ADMISSION: 06/05/2025 HISTORY OF PRESENT COMPLAINT: The patient was seen by me on on 05/31/2025 in my office. The patient presented to me with history of severe pain in the left knee joint. The patient graded intensity of pain to be 8-9/10. Unable to sleep. The patient is walking with a limp. Quality of life and activities of daily living is affected. X-ray confirmed severe left knee osteoarthritic changes with ceit-qh-xioh appearance. PAST MEDICAL HISTORY: The patient has history of diabetes mellitus, high blood pressure, and high cholesterol. No history of asthma, seizure, chest pain, myocardial infarction, bleeding disorder, or stroke. PAST SURGICAL HISTORY: Right knee scope done in 2023 and right total knee replacement done in 2024. DRUG HISTORY: The patient is on 1. Atorvastatin. 2. Hydrochlorothiazide. 3. Losartan. 4. Metformin. ALLERGIES: NONE KNOWN. FAMILY HISTORY AND SOCIAL HISTORY: The patient denies smoking, drinking, and is not working. PHYSICAL EXAMINATION: GENERAL: Rather normal-built person. VITAL SIGNS: Pulse 82 per minute. Blood pressure 122/76. NECK: Soft, supple. No masses felt. Trachea is centrally placed. CARDIOVASCULAR SYSTEM: First and second heart sounds are normal. No murmur heard. RESPIRATORY SYSTEM: Bilateral vesicular breath sounds. CHEST: Clear. ABDOMEN: Soft. No masses felt. Bowel sounds present. RECTAL: Rectal examination is not indicated in this case. The patient was advised to see the family physician for rectal examination. EXTREMITIES: Left knee examination revealed mild swelling and 2+ tenderness along the medial joint line. The patient had genu varus deformity. Active range of motion 0 to 115 degrees of flexion. Patellofemoral crepitus is present. The patient walks with a limp. Neurovascularly intact. IMAGING: X-ray confirms severe osteoarthritic changes of the left knee joint. Since the patient is in severe pain and quality of life and activities of daily living is affected and x-ray revealed significant DJD, therefore, left total knee replacement was discussed and advised. With the help of posters of the knee joint along with the knee model, the procedure was explained in detail. Risks, benefits, and limitations were explained. All questions were answered. Risks with anesthesia includes, but not limited to reaction to anesthetic agents, cardiac arrest, rarely it might be fatal. Risks with outpatient include risk infection and if that happens, the patient may need further surgical procedure. Other risks include delayed healing, wound dehiscence, etc. Sometimes, rare complication happens and if that happens, that has to be taken care of. Sometimes, there is a loosening of the implant and a stress fracture proximal and/or distal to the implant. Deep venous thrombosis is already explained that may migrate to lungs and that could be a life-threatening situation. The patient is fully aware of that. Accordingly, surgery is booked for 06/05/2025 in [facility]. DT: 15:27:49 TT: 16:11:00 Ref: [id number] - TID: [id number]
--- NOTE | 2025-06-05 16:16 | SUR.PHASEI ---
pt able to tolerate oral fluids without difficulty swallowing or nausea/vomiting.
--- NOTE | 2025-06-05 16:52 | SUR.PHASEII ---
Eating dinner tray at this time, tolerating it well. Significant other at bedside. No c/o of pain or discomfort.
[2025-06-05] MEDS: MORPHINE SULF INJ 10 MG/ML VIAL 4 MG IVP ×2 (19:46→23:46)
[2025-06-05] MEDS: ceFAZolin/D5W 1 GM IVPB 1 GM/50 ML BAG IV (19:56)
[2025-06-06] VITALS: BP 100/68; PULSE 89; RESP 18; TEMP 36.1; O2SAT 96
[2025-06-06] MEDS: ceFAZolin/D5W 1 GM IVPB 1 GM/50 ML BAG IV (03:07)
[2025-06-06 04:00] VITALS: BP 119/73; PULSE 91; RESP 18; TEMP 36.4; O2SAT 95
[2025-06-06] MEDS: MORPHINE SULF INJ 10 MG/ML VIAL 4 MG IVP (04:05)
[2025-06-06 06:07] LABS: Basophils # (Auto) 0.0 Thou/mm3 (0.0-0.2); Basophils % (Auto) 0 % (0-2.5); Eosinophils # (Auto) 0.0 Thou/mm3 (0.0-0.5); Eosinophils % (Auto) 0 % (0-10); Hematocrit 32.2 % (41.0-53.0); Hemoglobin 11.0 g/dL (13.5-16.0); Immature Granulocytes Auto 0.03 Thou/mm3 (0.00-0.00); Lymphocytes # (Auto) 0.7 Thou/mm3 (1.0-4.8); Lymphocytes % (Auto) 8 % (10-50); Mean Corpuscular HGB Conc 34.2 g/dl (31.0-37.0); Mean Corpuscular Hemoglobin 30.5 pg (25.0-35.0); Mean Corpuscular Volume 89 fL (80-100); Monocytes # (Auto) 0.6 Thou/mm3 (0.0-0.8); Monocytes % (Auto) 7 % (0-12); Neutrophils # (Auto) 7.8 Thou/mm3 (1.8-7.7); Neutrophils % (Auto) 85 % (37-80); Nucleated Red Blood Cell # 0.00 Thou/mm3 (0.00-0.00); Nucleated Red Blood Cell % 0 /100 WBC (0); Platelet Count 192 Thou/mm3 (140-440); RDW Standard Deviation 40.7 fL (35.1-43.9); Red Blood Count 3.61 Miln/mm3 (4.50-5.90); White Blood Count 9.1 Thou/mm3 (3.8-10.6)
[2025-06-06 08:00] VITALS: BP 127/75; PULSE 82; RESP 18; TEMP 36.3; O2SAT 95
--- NOTE | 2025-06-06 08:34 | PC.NURSE ---
Received telephone from Dr. Dixon. Order read back and verified. Per MD, discontinue Morphine. Initiate Orange 5/325 PO every 6 hours as needed for pain management. Start Toradol 15mg IV push every 6 hours as needed for pain. Patient to be discharged once evaluated and cleared by physical therapy. All discharge medications have been sent to the patients pharmacy.
[2025-06-06] MEDS: KETOROLAC INJ 30 MG/ML VIAL 15 MG IVP (09:16)
--- NOTE | 2025-06-06 10:05 | PC.SS ---
Patient is alert/oriented. Patient is Mohawk speaking only. City Route Driver present. Patient states he lives with and kids. Patient states he's independent with ADl's. Patient states he met with Ortho prior to surgery in office and was provided a walker. Patient states his family will assist when he returns home. Patient had surgery yesterday for left total knee. Patient pending a PT eval today. Pending further recommendations. PCP: Dr. Peres in [place]. Last appt. 2 months ago. Pharmacy: [facility]. D/c plan: home. alt medical decision maker: Joon rizo, transportation: family d/c plan: home
[2025-06-06 12:00] VITALS: BP 131/81; PULSE 83; RESP 18; TEMP 36.2; O2SAT 95
--- NOTE | 2025-06-12 13:29 | ESPR_ITS ---
Documentation for date of: 06/12/25 POST ANESTHESIA NOTE: Patient had spinal anesthesia and L femoral block and MAC for L TKA on 06/05/25. I just called and spoke with him on the phone via software installation engineer and he denied any problems from anesthesia and was thankful. Shaka Argueta MD Anesthesia Progress Note Progress Note Most recent Vital Signs: Last Vital Signs Temp 97.2 F 06/06/25 12:00 Pulse 83 06/06/25 12:00 Resp 18 06/06/25 12:00 BP 131/81 H 06/06/25 12:00 Pulse Ox 95 06/06/25 12:00 O2 Del Method Room Air 06/06/25 12:00
== END 2025-06-06 13:55 | disposition home or self-care (01) ==
LOC: S3NX 18:28
PROVIDERS: Anesthesiology; Admitting Provider Orthopaedic Surgery; PCP Physician Assistant; Referring Provider Orthopaedic Surgery; Visit Provider Orthopaedic Surgery
PROC: (CPT 27447; principal; 2025-06-05 11:30)
DX: M17.12 Unilateral primary osteoarthritis, left knee (principal); M21.162 Varus deformity, not elsewhere classified, left knee; M94.262 Chondromalacia, left knee
CPT/HCPCS: 27447; 36415; 73562; 80053; 85025; 85610; 85730; 86850; 86900; 86901; 87081; 96374; 96375; 96376; 97162; A4217; A4649; C1713; C1776; G0378; J0689; J0690; J1100; J1580; J1885; J2250; J2270; J2704; J2795; J3010; J3490